=== PATIENT | female | born 1995 | race Two or more races ===

== ENCOUNTER 2024-05-04 18:04 | Emergency (ER) | payer MEDICAID, SELFPAY ==
[2024-05-04 18:06] VITALS: BMI 28.3
[2024-05-04 18:20] VITALS: BP 119/62; PULSE 126; RESP 20; TEMP 39.5; O2SAT 98
--- NOTE | 2024-05-04 18:30 | XR_ITS ---
Examination: PA lateral chest 2 views TECHNIQUE: Upright PA and lateral chest 2 views Exam date and time: May 04, 2024 at 1834 hours Comparison October 27, 2022 INDICATIONS: Coughing fever beginning 3 days ago. FINDINGS: Normal heart size. Lungs are clear. The osseous structures are intact. IMPRESSION: No active disease.
--- NOTE | 2024-05-04 18:31 | PD.EDRME ---
Rapid Medical Screening Exam RME Arrival date/time: 05/04/24 18:04 28-year-old female no significant past medical history presents emergency department complaining of cough, sore throat, body aches, and fever since yesterday. Patient reports had sick contact with family member that had similar symptoms. Chief Complaint: Fever Time Seen by Provider: 05/04/24 18:22 Vital signs: Vital Signs Temperature 103.1 F H 05/04/24 18:20 Pulse Rate 126 H 05/04/24 18:20 Respiratory Rate 20 05/04/24 18:20 Blood Pressure 119/62 05/04/24 18:20 Pulse Oximetry (%) 98 05/04/24 18:20 Oxygen Delivery Method Room Air 05/04/24 18:20 Vital signs reviewed by provider: Yes
[2024-05-04 19:19] LABS: Collection Type, Urine Clean Catch; RBC,Urine 0 /hpf (0-3)
[2024-05-04 19:28] LABS: Bilirubin,Urine Negative (Negative); Blood,Urine Negative (Negative); Clarity,Urine Clear (Clear/Hazy); Color,Urine Lt-Yellow (Lt Yel-Yel); Glucose, Urine Negative (Negative); Ketones,Urine Negative (Negative); Leukocyte Esterase,Urine Positive (Negative); Nitrite,Urine Positive (Negative); PH,Urine 7.5 (5.0-7.0); Protein,Urine Negative (Neg - Trace); Squamous Epithelial Cell,Urine 6 /hpf (0-5); Urobilinogen,Urine Negative mg/dL (0.0-1.0); WBC,Urine 1 /hpf (0-5)
[2024-05-04 19:30] LABS: Culture Indicated,Urine Yes
[2024-05-04 19:35] LABS: HCG Qualitative,Urine Negative
[2024-05-04 20:02] LABS: Strep A Rapid Negative (Negative)
--- NOTE | 2024-05-04 20:07 | EDNOTE_ITS ---
Upper Respiratory Inf. RME/HPI General Chief Complaint: Fever Stated Complaint: BODY ACHES FEVER SINCE LAST NIGHT Time Seen by Provider: 05/04/24 18:22 Source: patient Arrival date/time: 05/04/24 18:04 28-year-old female no significant past medical history presents emergency department complaining of cough, sore throat, body aches, and fever since yesterday. Patient reports had sick contact with family member that had similar symptoms. Mode of arrival: ambulatory Limitations: no limitations RME / HPI RME / HPI Narrative: 05/04/24 18:04 28-year-old female no significant past medical history presents emergency department complaining of cough, sore throat, body aches, and fever since yesterday. Patient reports had sick contact with family member that had similar symptoms. Related Data Home Medications ?Medication ?Instructions ?Recorded ?Confirmed fluoxetine 20 mg capsule (Prozac) 20 mg PO QDAY 07/18/20 Previous Rx's ?Medication ?Instructions ?Recorded azithromycin 250 mg tablet See Rx Instructions PO .COM PLEX #6 10/27/22 tabs acetaminophen 500 mg capsule 500 mg PO Q6H PRN pain #3 0 caps 05/04/24 ibuprofen 600 mg tablet 600 mg PO Q8H PRN pain #20 t abs 05/04/24 oseltamivir 75 mg capsule (Tamiflu) 75 mg PO Q12H 5 da ys #10 caps 05/04/24 Allergies Allergy/AdvReac Type Severity Reaction Status Date / Time No Known Allergies Allergy Verified 05/04/24 18:06 Review of Systems Review of Systems Systems Reviewed: All systems reviewed, normal except as documented Constitutional Constitutional: Reports system reviewed and no additional complaints, except as documented, Reports body ache(s), Denies chills and Reports fever(s) Eyes Eyes: Reports system reviewed and no additional complaints, except as documented and Denies change in vision ENT Ears, Nose, Mouth, and Throat: Reports system reviewed and no additional complaints, except as documented, Denies disequilibrium, Denies dizziness, Reports sore throat and Denies vertigo Cardiovascular Cardiovascular: Reports system reviewed and no additional complaints, except as documented, Denies chest pain and Denies dyspnea Respiratory Respiratory: Reports system reviewed and no additional complaints, except as documented, Denies chest congestion, Reports cough and Denies dyspnea Gastrointestinal Gastrointestinal: Reports system reviewed and no additional complaints, except as documented, Denies abdominal pain, Denies nausea and Denies vomiting Musculoskeletal Musculoskeletal: Reports system reviewed and no additional complaints, except as documented, Denies abnormal gait and Denies arthralgias Integumentary/Breasts Skin/Breast: Reports system reviewed and no additional complaints, except as documented, Denies erythema, Denies rash and Denies wounds Neurologic Neurologic: Reports system reviewed and no additional complaints, except as documented, Denies abnormal gait, Denies disequilibrium, Denies dizziness and Denies vertigo Past Medical History Past Medical History NEUROLOGIC: Negative Neurological Disorders CARDIAC: Negative Cardiac Disorders or Congestive Heart Failure RESPIRATORY: Negative Chronic Obstructive Pulmonary Disease (COPD) GASTROINTESTINAL: Negative Gastrointestinal Disorders, Hepatitis, Cirrhosis, Pancreatitis, Celiac Disease, Gall Bladder Disease, Gastrointestinal Bleed, Esophageal Varices, Ferreira's Esophagus, Colitis, Ulcerative Colitis, Diverticulitis, Diverticulosis, Ulcer, Colorectal Cancer, Irritable Bowel, Crohn's Disease, Obstructive Bowel, Hiatal Hernia, Hemorrhoids, Gastroesophageal Reflux Disease or Obesity GENITOURINARY: Negative Genitourinary Disorders, Renal Disease or Prostate Cancer REPRODUCTIVE: Negative Breast Cancer, Endometriosis, Pelvic Inflammatory Disease, Previous Pregnancies, Testicular Cancer or Uterine Prolapse MUSCULOSKELETAL: Negative Musculoskeletal Disorders, Bone Cancer or Carpal Tunn el Syndrome ENT: Negative Cataracts, Glaucoma, Blind, Retinal Detachment, Macular Degeneration, Ear Infection, Deafness or Eye Prosthesis ENDOCRINE: Positive Endocrine Disorders; Negative Diabetes Mellitus Type 1 or Diabetes Mellitus Type 2 HEMATOLOGIC: Negative Blood Disorders or Anemia OTHER HISTORY: Negative Hospitalization, Autoimmune Disease, Down Syndrome, Developmental Delay, Shingles, Falls, Blood Transfusions, Blood Transfusion Reaction, Anesthesia Reactions, Organ Transplant, Chemotherapy, Radiation Therapy, Hyperbaric Therapy, MRSA, VRSA, Vancomycin-Resistant Enterococci, Human Immunodeficiency Virus (HIV), Chicken Pox, Measles, Mumps, Rubella (Bolivian Measles), Pertussis, Clostridium Difficile, Cancer, Breast Cancer, Cervical Cancer, Colorectal Cancer, Lung Cancer, Ovarian Cancer, Prostate Cancer or Testicular Cancer Family History FAMILY HISTORY: Negative Family Psychiatric Problems, Family Respiratory Disorders, Family Cardiac Disorders, Family Gastrointestinal Problems, Family Cancer, Family Surgery or Family Anesthesia Reaction Surgical History SURGICAL: Negative Endocrine Surgery, Thyroidectomy, Ear Surgery, Tympanostomy Tube, Eye Surgery, Nose Surgery, Oral Surgery, Tonsillectomy, Adenoidectomy, Cochlear Implant, Corneal Transplant, Throat Surgery, Abdominal Surgery, Tracheostomy, Gastric Bypass Surgery, Gastrostomy, Bowel Surgery, Nephrectomy, Transurethral Resection, Joint Replacement, Amputation, Open Reduction Internal Fixation, Arthroscopy, Neurologic Surgery, Brain Shunt, Mastectomy, Lumpectomy, Hysterectomy, Tubal Ligation, Section (0) or Organ Transplant Social History SMOKING STATUS: Current some day smoker ED Exam General Limitations: Present no limitations General appearance: Present alert and in no apparent distress Head Head exam: Present atraumatic Eye Eye exam: Present normal appearance, PERRL and EOMI ENT ENT exam: Present normal exam, normal oropharynx and mucous membranes moist Neck Neck exam: Present normal inspection, full ROM and trachea midline Chest Chest inspection: Present normal inspection and symmetric chest wall rise Respiratory Respiratory exam: Present normal lung sounds bilaterally Cardiovascular Cardiovascular exam: Present regular rate, normal rhythm and normal heart sounds Abdominal Exam Abdominal exam: Present soft and normal bowel sounds Extremities Exam Extremities exam: Present normal inspection and full ROM Back Exam Back exam: Present normal inspection and full ROM Neurological Exam Neurological exam: Present alert, oriented X3 and CN II-XII intact Psychiatric Psychiatric exam: Present normal affect and normal mood Skin Skin exam: Present warm, dry, intact and normal color Course Quality Measures none Orders Category Date Time Status Bedside COVID-19 Antigen Test NOW Care 05/04/24 18:30 Completed Bedside Influenza A&B Antigen Test NOW Care 05/04/24 18:30 Completed XR chest 2V Stat Exams 05/04/24 18:30 Completed HCG Qualitative,Urine Stat Lab 05/04/24 19:07 Completed Strep A Rapid Stat Lab 05/04/24 18:45 Completed Urinalysis, C/S if Indicated Stat Lab 05/04/24 19:07 Completed Urine Culture Stat Lab 05/04/24 19:07 Received Acetaminophen Tab [Tylenol ES Tab] Med 05/04/24 18:30 Discontinued 1,000 mg PO X1 ONE Ibuprofen Tab [Motrin Tab] Med 05/04/24 18:30 Discontinued 600 mg PO X1 ONE Vital Signs Vital signs: Vital Signs Temperature 103.1 F H 05/04/24 18:20 Pulse Rate 126 H 05/04/24 18:20 Respiratory Rate 20 05/04/24 18:20 Blood Pressure 119/62 05/04/24 18:20 Pulse Oximetry (%) 98 05/04/24 18:20 Oxygen Delivery Method Room Air 05/04/24 18:20 98% room air within normal limits Upper Respiratory Infection MDM Narrative MDM Narrative:: 28-year-old female no significant past medical history presents emergency department complaining of cough, sore throat, body aches, and fever since yesterday. Patient reports had sick contact with family member that had similar symptoms. Patient appears nontoxic and is hemodynamically stable. No adventitious lung sounds on auscultation. Influenza positive. Strep swab negative. Patient treated with Tamiflu symptom onset within 48 hours. Patient data External records reviewed:: [facility] previous records Clinical information provided by:: patient Social determinants that could affect healthcare access:: none Patient has the following chronic illnesses:: None How is presenting disease/condition affected by chronic disease/condition?: no chronic disease Evaluation data The following diagnostics were reviewed and interpreted by me:: lab results Lab and/or radiology exams considered but not ordered:: Ordered Interpretation Summary: Interpreted by me Medications / Prescriptions Medications or Prescriptions considered but not ordered:: Ordered Medication administrations:: Medication Administration History Discontinued Medications Acetaminophen (Acetaminophen 500 Mg Tablet) 1,000 mg PO X1 ONE Stop: 05/04/24 18:31 Last Admin: 05/04/24 20:24 Dose: 1,000 mg Documented By: KG Ibuprofen (Ibuprofen Tab 600 Mg Tablet) 600 mg PO X1 ONE Stop: 05/04/24 18:31 Last Admin: 05/04/24 20:25 Dose: 600 mg Documented By: KG Given Consultations Consultation(s) initiated? (list below): No Diagnosis Upper Respiratory Differential Diagnosis: upper respiratory infection, otitis media, sinusitis, viral infection, bronchitis, influenza and pharyngitis Most likely diagnosis given after review of the tests above:: Influenza Admission Indicated Admission indicated?: not indicated Admission Request Was there a request for admission?: No Disposition Plan Disposition Plan: Discharge Discharge Attestation Discharge Attestation: The patient and all family members were given an opportunity to ask questions and understood the discharge instructions. Discharge instructions specifically effects, indications for sooner follow up or return to the emergency department, and the expected course of current diagnosis. Patient condition: Stable Discharge Plan Plan Patient Disposition: HOME (Self Care) Disposition Comment: Stable Prescriptions/Referrals Prescriptions/Med Rec: New acetaminophen 500 mg capsule 500 mg PO Q6H PRN (Reason: pain) Qty: 30 0RF ibuprofen 600 mg tablet 600 mg PO Q8H PRN (Reason: pain) Qty: 20 0RF oseltamivir [Tamiflu] 75 mg capsule 75 mg PO Q12H 5 Days Qty: 10 0RF No Action fluoxetine [Prozac] 20 mg Capsule 20 mg PO QDAY azithromycin 250 mg tablet See Rx Instructions .ROUTE .COMPLEX Qty: 6 0RF Rx Instructions: For 250 mg dose pack: take 500 mg today (day 1), then 250 mg for 4 days (days 2-5) Problem List Clinical Impression: Influenza Patient/Caregiver Discharge Instructions Discharge Activity: activity as tolerated Education Materials: ED Influenza (Adult) Additional Instructions: Drink plenty of fluids and get plenty of rest. Take ibuprofen or Tylenol as needed for fever or pain. Take Tamiflu as prescribed. Follow-up with primary care provider in 2 to 3 days. Return to emergency department for any worsening symptoms or as needed. Print Language: Jordanian Stand Alone Forms: Coreen Award Info., Work/School Release, Patient Portal Info Letter PA/TRIAL [employer]ER Supervising Physician PA/VALERIE Supervising Physician: Dr. Freitas
[2024-05-04] MEDS: ACETAMINOPHEN 500 MG TABLET 1000 MG PO (20:24)
[2024-05-04] MEDS: IBUPROFEN TAB 600 MG TABLET PO (20:25)
[2024-05-04 20:33] VITALS: BP 122/79; PULSE 100; RESP 18; O2SAT 99
== END 2024-05-04 20:34 | disposition home or self-care (01) ==
LOC: SERX 20:28
PROVIDERS: Emergency Provider Emergency Medicine
DX: J11.1 Influenza due to unidentified influenza virus with other respiratory manifestations (principal)
CPT/HCPCS: 71046; 81001; 81025; 87077; 87086; 87186; 87651; 99283; A9270